=== PATIENT | female | born 1980 | race Caucasian/White ===

== ENCOUNTER → 2018-09-19 17:27 | Outpatient (CLI) | payer OTHER, MEDICAID, SELFPAY ==
[2018-09-19 20:52] LABS: Chlamydia Trachomatis by PCR Negative (Negative); Neisserai gonorrhoeae by PCR Negative (Negative); Probe Check PASS; Sample Adequacy Control PASS; Specimen Processing Control PASS
[2018-09-22 14:13] LABS: HPV APTIMA, High Risk Negative (Negative)
== END ==
PROVIDERS: Family Provider Family Medicine; PCP Family Medicine; Referring Provider Nurse Practitioner Women's Health; Visit Provider Nurse Practitioner Women's Health
DX: Z12.4 Encounter for screening for malignant neoplasm of cervix (principal); A64 Unspecified sexually transmitted disease; R10.2 Pelvic and perineal pain
CPT/HCPCS: 87491; 87591; 87624; 88175; G0145

== ENCOUNTER → 2018-09-26 14:10 | Outpatient (CLI) | payer MEDICAID, SELFPAY ==
--- NOTE | 2018-09-26 14:13 | US_ITS ---
STUDY: ULTRASOUND OF THE FEMALE PELVIS - COMPLETE REASON FOR EXAM: Female, 37 years old. Pelvic pain LMP: September 25, 2018 TECHNIQUE: Transabdominal and endovaginal TECHNICAL QUALITY: Adequate. COMPARISON: None. FINDINGS: The uterus is anteverted and is slightly right deviated. The uterus measures 10.1 x 5.5 x 4.6 cm. Nabothian cysts at the uterine cervix. The endometrium measures 3.3 mm in thickness, and is hyperechoic. There is no demonstrated endometrial mass. There is no demonstrated myometrial mass. The patient does not have an I.U.D. The right ovary is visualized. The right ovary measures 3.9 x 2.6 x 1.6 cm. There is no right ovarian cyst or ovarian mass. There is no visualized right adnexal mass or complex lesion. There is normal arterial and normal venous vascularity. The left ovary is visualized. The left ovary measures 3.2 x 2.7 x 1.9 cm. There is no left ovarian cyst or ovarian mass. There is no visualized left adnexal mass or complex lesion. There is normal arterial and normal venous vascularity. There is trace fluid in the cul-de-sac. The pre void volume of the bladder was 586 ml. . US/Transvaginal Non- IMPRESSION: Nabothian cysts. Trace pelvic fluid. Electronically Signed: Nathan Landrum DO at 22:44 EST Tel [phone], Service support ,
--- NOTE | 2018-09-26 14:13 | US_ITS ---
STUDY: ULTRASOUND OF THE FEMALE PELVIS - COMPLETE REASON FOR EXAM: Female, 37 years old. Pelvic pain LMP: September 25, 2018 TECHNIQUE: Transabdominal and endovaginal TECHNICAL QUALITY: Adequate. COMPARISON: None. FINDINGS: The uterus is anteverted and is slightly right deviated. The uterus measures 10.1 x 5.5 x 4.6 cm. Nabothian cysts at the uterine cervix. The endometrium measures 3.3 mm in thickness, and is hyperechoic. There is no demonstrated endometrial mass. There is no demonstrated myometrial mass. The patient does not have an I.U.D. The right ovary is visualized. The right ovary measures 3.9 x 2.6 x 1.6 cm. There is no right ovarian cyst or ovarian mass. There is no visualized right adnexal mass or complex lesion. There is normal arterial and normal venous vascularity. The left ovary is visualized. The left ovary measures 3.2 x 2.7 x 1.9 cm. There is no left ovarian cyst or ovarian mass. There is no visualized left adnexal mass or complex lesion. There is normal arterial and normal venous vascularity. There is trace fluid in the cul-de-sac. The pre void volume of the bladder was 586 ml. . US/Pelvic (Non ) IMPRESSION: Nabothian cysts. Trace pelvic fluid. Electronically Signed: Nathan Landrum DO at 22:44 EST Tel [phone], Service support ,
== END ==
PROVIDERS: Family Provider Family Medicine; PCP Family Medicine; Referring Provider Nurse Practitioner Women's Health; Visit Provider Nurse Practitioner Women's Health
DX: R10.2 Pelvic and perineal pain (principal)
CPT/HCPCS: 76830; 76856

== ENCOUNTER → 2018-12-25 16:29 | Outpatient (CLI) | payer OTHER, MEDICAID, SELFPAY ==
[2018-12-25 15:27] VITALS: BMI 29.0
== END ==
PROVIDERS: Family Provider Family Medicine; PCP Family Medicine; Referring Provider Nurse Practitioner Women's Health; Visit Provider Nurse Practitioner Women's Health
DX: R10.2 Pelvic and perineal pain (principal)
CPT/HCPCS: 87070; 87205